=== PATIENT | female | born 1990 | race American Indian/Alaskan Native ===

== ENCOUNTER 2020-11-17 12:47 | Outpatient (CLI) | payer OTHER ==
--- NOTE | 2020-11-20 07:41 | Ultrasound Report ---
ULTRASOUND BREAST LEFT LIMITED, 11/17/2020 CLINICAL INFORMATION / INDICATION: Patient presents for evaluation of an area of palpable concern in the left breast. TECHNIQUE: Targeted ultrasound evaluation was performed of the area of interest. COMPARISON: None. FINDINGS: Targeted ultrasound of the area of palpable concern in the left breast 7:00 position located 4 cm fro m the nipple reveals an oval circumscribed hypoechoic mass measuring up to 2.8 x 1.2 x 2.4 cm. The ma ss is parallel. No internal vascularity is demonstrated. IMPRESSION: 1. An oval circumscribed hypoechoic mass corresponds with the site of palpable concern in the left br east. This is considered low suspicion for malignancy and most likely represents a fibroadenoma. Sarmiento louise, because the area is newly palpable, ultrasound-guided biopsy is recommended for confirmation. Follow up recommendation: Biopsy BI-RADS Category 4: Suspicious for Malignancy. A normal or "negative" report should not preclude biopsy or follow-up of a clinically suspicious find ing. Signer Name: Cassidy Soto MD Signed: 11/17/2020 2:23 PM Workstation Name: [email or web address]
== END 2020-11-17 12:48 | disposition home or self-care (01) ==
LOC: MAMMO 12:47
DX: N63.10 Unspecified lump in the right breast, unspecified quadrant (principal); R20.2 Paresthesia of skin

== ENCOUNTER 2021-06-29 08:23 | Outpatient (CLI) | payer OTHER ==
--- NOTE | 2021-06-29 10:52 | Ultrasound Report ---
ULTRASOUND BREAST LEFT LIMITED, 06/29/2021 CLINICAL INFORMATION / INDICATION: Patient presented for evaluation of palpable lump in October 2020, for which an oval solid mass was identified and biopsy was recommended. Biopsy has yet to be performe d. As it has been 7 months since earlier ultrasound, 6 month follow-up ultrasound is being performed to establish stability. Diagnostic mammogram was not performed due to patient's age. TECHNIQUE: Targeted ultrasound evaluation was performed of the area of interest. COMPARISON: Prior left breast ultrasound 11/17/2020 FINDINGS: As noted on the prior study, there is a solid oval mass in the left breast at 7:00, 4 cm from nipple, measuring 2.6 x 1.3 x 2.4 cm. The mass is parallel with benign features most likely of a fibroadenom a. No significant internal vascularity is noted. Given the lack of any significant interval change ov er the past 7 months, this finding should be viewed as highly likely benign, especially in this young age group. We will request one additional 6 month follow-up ultrasound to establish stability for a 12 month timeframe. IMPRESSION: Probably benign findings. There is been no interval change in the palpable solid oval mas s in the left breast at 7:00 with features highly suggestive of a benign fibroadenoma. Recommend one additional 6 month follow-up left breast ultrasound to establish stability for a 1 year time frame. Biopsy is no longer recommended. Follow up recommendation: Short term follow up in 6 months. BI-RADS Category 3: PROBABLY BENIGN. Followup in 6 months. A normal or "negative" report should not preclude biopsy or follow-up of a clinically suspicious find ing. Signer Name: Maria Antonia Enriquez MD Signed: 06/29/2021 10:47 AM Workstation Name: [email or web address]
== END 2021-06-29 08:24 | disposition home or self-care (01) ==
LOC: MAMMO 08:23
PROVIDERS: ATTEND Internal Medicine
DX: N63.21 Unspecified lump in the left breast, upper outer quadrant (principal)